=== PATIENT | female | born 1975 | race Hispanic/Latino ===

== ENCOUNTER 2018-05-25 14:02 | Emergency (ER) | payer BC, OTHER ==
[2018-05-25] MEDS ORDERED: ASPIRIN 81 MG CHEWABLE TABLET ONE (15:01)
[2018-05-25 15:20] LABS: Protime INR 1.17
[2018-05-25 15:22] LABS: Absolute Lymphocytes (CBC) 0.8 K/uL (0.7-4.9); Absolute Monocytes 0.3 K/uL (0.1-1.3); Absolute Neutrophil 5.1 K/uL (1.8-8.0); Basophils % 0.3 % (0-1.3); Eosinophils % 0.7 % (0-4.4); Hematocrit 26.2 % (36.0-45.0); Lymphocytes % 12.6 % (15.3-44.8); MCH 19.9 pg (27.0-35.0); MCV 66.5 fL (80-100); Monocytes % 4.4 % (3.3-12.3); RBC Red Blood Cell Count 3.94 M/uL (3.86-4.86)
--- NOTE | 2018-05-25 15:22 | RAD REPORT ---
EXAM DESCRIPTION: RAD - Chest Pa And Lat (2 Views) - 05/25/2018 3:16 pm CLINICAL HISTORY: Chest pain, right arm numbness and tingling COMPARISON: August 2012 TECHNIQUE: PA and lateral views of the chest were obtained. FINDINGS: The lungs are clear. No new mediastinal or hilar process suspected. Slight fullness at th e right hilum and suprahilar region is not clearly different from the comparison. Slight elevation of the right hemidiaphragm noted and stable. Heart size is normal and central vasculature is within nor mal limits. No pleural effusion or pneumothorax seen. No acute bony finding noted. No aortic abnor mality. IMPRESSION: No acute cardiopulmonary process. Above detailed chest findings are not clearly differe nt from comparison.
[2018-05-25 15:40] LABS: ALT/SGPT 157 U/L (12-78); AST/SGOT 175 U/L (15-37); Albumin 3.7 g/dL (3.4-5.0); Alkaline Phosphatase 112 U/L (45-117); BUN Blood Urea Nitrogen 13 mg/dL (7-18); Bicarbonate 31 mmol/L (21-32); Bilirubin Direct 0.2 mg/dL (0-0.2); Bilirubin Total 0.7 mg/dL (0.2-1.0); Glucose Level 154 mg/dL (74-106); NT PRO-BNP 45 pg/mL (<125); Potassium 3.8 mmol/L (3.5-5.1); Protein, Total 7.9 g/dL (6.4-8.2); Sodium Level 134 mmol/L (136-145)
[2018-05-25 15:50] LABS: Blood Morphology Comment NOTED (NOT SEEN); Hypochromasia 2+; Platelet Estimate ADEQ; Urine White Blood Cell Casts OK
[2018-05-25 16:22] LABS: Urine Blood NEGATIVE (NEG); Urine Glucose NEGATIVE (NEG); Urine Protein TRACE (NEG); Urine pH 6.5 (5.0-7.0)
--- NOTE | 2018-05-25 16:27 | EKG ---
Test Date: 2018-05-25 Test Time: 14:14:51 Application Packaging Consultant: DRU MEASUREMENT RESULTS: Intervals: Rate: 114 AK: 148 QRSD: 82 QT: 332 QTc: 457 [place]: P: 69 AK: 148 QRS: 19 T: 48 INTERPRETIVE STATEMENTS: Sinus tachycardia Cannot rule out Anterior infarct, age undetermined Abnormal ECG Compared to ECG 08/12/2012 12:52:54 No significant changes Electronically Signed On 05-25-18 16:27:04 CDT by Austin Gregorio
--- NOTE | 2018-05-25 17:23 | EDPHYS ---
Physician Documentation [facility] Name: Silvana Hanna Age: 42 yrs Sex: Female : 1975 Arrival Date: 05/25/2018 Time: 14:05 Bed 26 Private MD: Abby Rhodes H ED Physician Demetrio Chandler HPI: 05/25 17:10 This 42 yrs old Female presents to ER via Ambulatory with complaints of Chest wa Pain, Dizziness. 17:10 The patient or guardian reports chest pain that is located primarily in the substernal wa area. Onset: just prior to arrival. The pain radiates to Associated signs and symptoms: Pertinent positives: shortness of breath, sweating, tingling, Pertinent negatives: near syncope, palpitations. The chest pain is described as sharp. Duration: The patient or guardian reports multiple episodes, the episodes last approximately 5 second(s). Modifying factors: The symptoms are alleviated by nothing. the symptoms are aggravated by nothing. Severity of pain: At its worst the pain was mild in the emergency department the pain has improved. The patient has experienced similar episodes in the past, several times. The patient has not recently seen a physician. sudden onset chest discomfort, diaphoresis and dizziness while having lunch. . 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 - Social history:: Smoking status: Patient/guardian denies using tobacco. - Ebola Screening: : Patient negative for fever greater than or equal to 101.5 degrees Fahrenheit, and additional compatible Ebola Virus Disease symptoms Patient denies exposure to infectious person Patient denies travel to an Ebola-affected area in the 21 days before illness onset No symptoms or risks identified at this time. - Family history:: not pertinent. - Hospitalizations: : No recent hospitalization is reported. ROS: 17:13 Constitutional: Negative for fever, chills, and weight loss, Eyes: Negative for injury, wa pain, redness, and discharge, ENT: Negative for injury, pain, and discharge, Neck: Negative for injury, pain, and swelling, Abdomen/GI: Negative for abdominal pain, nausea, vomiting, diarrhea, and constipation, Back: Negative for injury and pain, : Negative for injury, bleeding, discharge, and swelling, MS/Extremity: Negative for injury and deformity, Skin: Negative for injury, rash, and discoloration, Psych: Negative for depression, anxiety, suicide ideation, homicidal ideation, and hallucinations. 17:13 Cardiovascular: Positive for chest pain, Negative for edema, orthopnea, palpitations, paroxysmal nocturnal dyspnea. 17:13 Respiratory: Positive for shortness of breath, at rest. Negative for cough. 17:13 Neuro: Positive for dizziness, Negative for gait disturbance, headache. Exam: 17:14 Constitutional: This is a well developed, well nourished patient who is awake, alert, wa and in no acute distress. Head/Face: Normocephalic, atraumatic. Eyes: Pupils equal round and reactive to light, extra-ocular motions intact. Lids and lashes normal. Conjunctiva and sclera are non-icteric and not injected. Cornea within normal limits. Periorbital areas with no swelling, redness, or edema. ENT: Nares patent. No nasal discharge, no septal abnormalities noted. Tympanic membranes are normal and external auditory canals are clear. Oropharynx with no redness, swelling, or masses, exudates, or evidence of obstruction, uvula midline. Mucous membranes moist. Neck: Trachea midline, no thyromegaly or masses palpated, and no cervical lymphadenopathy. Supple, full range of motion without nuchal rigidity, or vertebral point tenderness. No Meningismus. Chest/axilla: Normal chest wall appearance and motion. Nontender with no deformity. No lesions are appreciated. Abdomen/GI: Soft, non-tender, with normal bowel sounds. No distension or tympany. No guarding or rebound. No evidence of tenderness throughout. Back: No spinal tenderness. No costovertebral tenderness. Full range of motion. Skin: Warm, dry with normal turgor. Normal color with no rashes, no lesions, and no evidence of cellulitis. MS/ Extremity: Pulses equal, no cyanosis. Neurovascular intact. Full, normal range of motion. Psych: Awake, alert, with orientation to person, place and time. Behavior, mood, and affect are within normal limits. 17:14 Cardiovascular: Rate: tachycardic, Rhythm: regular, Pulses: no pulse deficits are appreciated, Heart sounds: normal, Edema: is not appreciated, JVD: is not appreciated. 17:14 Neuro: Orientation: is normal, Mentation: is normal, Memory: is normal, Cranial nerves: grossly normal, Cerebellar function: is grossly normal. Vital Signs: 14:16 BP 148 / 81; Pulse 118; Resp 19 S; Pulse Ox 98% on R/A; Weight 111.13 kg (R); Pain 4/10;sg 15:46 BP 139 / 68; Pulse 104; Resp 18; Pulse Ox 97% on R/A; tl3 17:09 BP 143 / 62; Pulse 100; Resp 18; Pulse Ox 98% ; tl3 17:35 BP 145 / 62; Pulse 96; Resp 18; Pulse Ox 97% ; tl3 MDM: 14:[address] 17:14 Differential diagnosis: acute myocardial infarction, anxiety, coronary artery disease wa stable angina, unstable angina. 17:15 Data reviewed: vital signs, nurses notes, lab test result(s), EKG, radiologic studies. ct Test interpretation: by ED physician or midlevel provider: labs noted for anemia (microcytic). also elevated liver enzymes. . ED course: needs r/o paroxysmal dysrhythmia. consider primary anxiety. r/o ACS. anemia? thyroid dysfunction? pt with considerable g/o ETOH. 17:17 Test interpretation: by ED physician or midlevel provider: EKG: HR 114. sinus tach. ct 17:18 Test interpretation: by ED physician or midlevel provider: normal CXR. Response to ct treatment: the patient's symptoms have markedly improved after treatment, tachycardia resolved. discussed the need to quit ETOH. will start iron supplement for anemia. f/u with VENDING TECHNICIAN for further eval of h/o menorrhagia. f/u cardiology for holter to r/o paroxysmal dysrrhymia. 05/25 14:52 Order name: Basic Metabolic Panel; Complete Time: 16:36 05/25 14:52 Order name: CBC with Diff; Complete Time: 16:37 05/25 14:52 Order name: LFT's; Complete Time: 16:37 05/25 14:52 Order name: Magnesium; Complete Time: 16:36 05/25 14:52 Order name: NT PRO-BNP; Complete Time: 16:37 05/25 14:52 Order name: PT-INR; Complete Time: 15:35 ct 05/25 14:52 Order name: Troponin (emerg Dept Use Only); Complete Time: 15:35 ct 05/25 14:52 Order name: Chest Pa And Lat (2 Views) XRAY; Complete Time: 15:35 ct 05/25 14:52 Order name: TSH; Complete Time: 16:37 ct 05/25 15:31 Order name: CBC Smear Scan; Complete Time: 16:37 EDMS 05/25 16:09 Order name: Urine Dipstick--Ancillary (enter results); Complete Time: 16:37 mb4 05/25 16:09 Order name: Urine --Ancillary (enter results); Complete Time: 16:36 4 05/25 14:52 Order name: Urine Test (obtain specimen); Complete Time: 15:49 ct 05/25 14:52 Order name: EKG; Complete Time: 14:53 ct 05/25 14:52 Order name: Cardiac monitoring; Complete Time: 15:03 ct 05/25 14:52 Order name: EKG - Nurse/Tech; Complete Time: 14:53 ct 05/25 14:52 Order name: IV Saline Lock; Complete Time: 15:03 ct 05/25 14:52 Order name: Labs collected and sent; Complete Time: 15:03 ct 05/25 14:52 Order name: O2 Per Protocol; Complete Time: 15:03 ct 05/25 14:52 Order name: O2 Sat Monitoring; Complete Time: 15:03 ct 05/25 14:52 Order name: Urine Dipstick-Ancillary (obtain specimen); Complete Time: 15:50 ct Administered Medications: 15:06 Not Given (patient took 2 325 mg aspirin at home at 1pm): Aspirin Chewable Tablet 324 tl3 mg PO once; 81 mg tablets x 4 Disposition: 05/25/18 17:22 Discharged to Home. Impression: Chest pain, unspecified, Microcytic Anemia. - Condition is Stable. - Discharge Instructions: Nonspecific Chest Pain, Iron Deficiency Anemia, Adult, [id number]. - Prescriptions for Ferrous Sulfate 325 mg (65 mg Iron) Oral Tablet - take 1 tablet by ORAL route every 8 hours; 90 tablet. senna 8.6 mg Oral tablet - take 1 tablet by ORAL route once daily As needed; 25 tablet. - Medication Reconciliation Form, Thank You Letter, Antibiotic Education, Prescription Opioid Use form. - Follow up: Austin Gregorio MD; When: 2 - 3 days; Reason: Recheck today's complaints. Follow up: Oksana Manriquez MD; When: 2 - 3 days; Reason: for evaluation of your anemia and heavy menses. - Problem is new. - Symptoms have improved. - Notes: do not drink alcohol as your liver enzymes are elevated signifying potential damage. follow up with the quarry manager for further evaluation and possible holter monitoring to rule out occasional irregular heart beat. understand that alcohol consumption can make these symptoms worse. Take iron pills to help boost your blood and improve your anemia. you may take stool softner as needed while on iron. see the VENDING TECHNICIAN doctor about heavy menstrual bleeding. return to ER immediately for severely worrisome concerns Signatures: Dispatcher [employer] EDMS Ace Mcgregor RN RN sg Demetrio Chandler MD MD wa Alisa Abarca RN RN tl3 Navarro Elise RN RN mg2 Corrections: (The following items were deleted from the chart) 17:36 17:22 05/25/2018 17:22 Discharged to Home. Impression: Chest pain, unspecified; tl3 Microcytic Anemia. Condition is Stable. Forms are Medication Reconciliation Form, Thank You Letter, Antibiotic Education, Prescription Opioid Use. Follow up: Austin Gregorio; When: 2 - 3 days; Reason: Recheck today's complaints. Follow up: Oksana Manriquez; When: 2 - 3 days; Reason: for evaluation of your anemia and heavy menses. Problem is new. Symptoms have improved. jass
--- NOTE | 2018-05-25 17:23 | ER ---
Nurse's Notes [facility] Name: Silvana Hanna Age: 42 yrs Sex: Female : 1975 Arrival Date: 05/25/2018 Time: 14:05 Bed 26 Private MD: Abby Rhodes H Diagnosis: Chest pain, unspecified;Microcytic Anemia Presentation: 05/25 14:14 Presenting complaint: Patient states: At like 1230 today, I was driving to get a [employer] and I got very dizzy, I had to rod puller and coiler, then my right arm was numb and tingling, I just didn't feel normal. My chest started hurting and I made it to work and decided that since the Chest pain is still happening I need to get checked out. Transition of care: patient was not received from another setting of care. Onset of symptoms was May 25, 2018. Risk Assessment: Do you want to hurt yourself or someone else? Patient reports no desire to harm self or others. Initial Sepsis Screen: Does the patient meet any 2 criteria? No. Patient's initial sepsis screen is negative. Does the patient have a suspected source of infection? No. Patient's initial sepsis screen is negative. Care prior to arrival: None. 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 - Social history:: Smoking status: Patient/guardian denies using tobacco. - Ebola Screening: : Patient negative for fever greater than or equal to 101.5 degrees Fahrenheit, and additional compatible Ebola Virus Disease symptoms Patient denies exposure to infectious person Patient denies travel to an Ebola-affected area in the 21 days before illness onset No symptoms or risks identified at this time. - Family history:: not pertinent. - Hospitalizations: : No recent hospitalization is reported. Screenin:30 Abuse screen: Denies threats or abuse. Nutritional screening: No deficits noted. tl3 Tuberculosis screening: No symptoms or risk factors identified. Fall Risk None identified. Assessment: 14:30 General: Appears distressed, uncomfortable, well groomed, well developed, well tl3 nourished, Behavior is calm, cooperative, appropriate for age. Pain: Denies pain. Pain began. Neuro: Level of Consciousness is awake, alert, obeys commands, Oriented to person, place, time, situation, Appropriate for age. Cardiovascular: Heart tones S1 S2 present Patient's skin is warm and dry. Rhythm is regular. Respiratory: Airway is patent Respiratory effort is even, unlabored, Respiratory pattern is regular, symmetrical. GI: No signs and/or symptoms were reported involving the gastrointestinal system. : No signs and/or symptoms were reported regarding the genitourinary system. EENT: No signs and/or symptoms were reported regarding the EENT system. Derm: No signs and/or symptoms reported regarding the dermatologic system. 15:46 Reassessment: Patient appears in no apparent distress at this time. No changes from tl3 previously documented assessment. Patient and/or family updated on plan of care and expected duration. Pain level reassessed. Patient is alert, oriented x 3, equal unlabored respirations, skin warm/dry/pink. pt returned from X ray. 16:18 Reassessment: Patient appears in no apparent distress at this time. No changes from tl3 previously documented assessment. Patient and/or family updated on plan of care and expected duration. Pain level reassessed. Patient is alert, oriented x 3, equal unlabored respirations, skin warm/dry/pink. pt provided scant amount of urine, water provided to patient so she can provide more Patient denies pain at this time. 17:09 Reassessment: Patient appears in no apparent distress at this time. No changes from tl3 previously documented assessment. Patient and/or family updated on plan of care and expected duration. Pain level reassessed. Patient is alert, oriented x 3, equal unlabored respirations, skin warm/dry/pink. Dr Chandler at bedside discussing POC with pt. 17:35 Pain: Pain does not radiate. tl3 Vital Signs: 14:16 BP 148 / 81; Pulse 118; Resp 19 S; Pulse Ox 98% on R/A; Weight 111.13 kg (R); Pain 4/10;sg 15:46 BP 139 / 68; Pulse 104; Resp 18; Pulse Ox 97% on R/A; tl3 17:09 BP 143 / 62; Pulse 100; Resp 18; Pulse Ox 98% ; tl3 17:35 BP 145 / 62; Pulse 96; Resp 18; Pulse Ox 97% ; tl3 ED Course: 14:05 Patient arrived in ED. mr 14:06 Rhodes VivJoseTalat, DO is Private Physician. mr 14:12 Demetrio Chandler MD is Attending Physician. wa 14:15 Triage completed. 14:15 Arm band placed on. sg 14:19 EKG done, by recreation technician. reviewed by Demetrio Chandler MD. 3 14:30 Patient has correct armband on for positive identification. Placed in gown. Bed in low tl3 position. Call light in reach. Side rails up X 1. Pulse ox on. NIBP on. Warm blanket given. 14:30 No provider procedures requiring assistance completed. Initial lab(s) drawn, by ct, tl3 sent to lab. Inserted saline lock: 20 gauge in right forearm, using aseptic technique. Blood collected. Patient maintains SpO2 saturation greater than 95% on room air. 14:52 Alisa Abarca, RAVI is Primary Nurse. tl3 15:14 Patient moved to radiology via wheelchair. [facility] 15:14 X-ray completed. Patient tolerated procedure well. [facility] 15:15 Chest Pa And Lat (2 Views) XRAY In Process Unspecified. EDDC 17:09 IV discontinued, intact, bleeding controlled, No redness/swelling at site. Pressure tl3 dressing applied. 17:20 Austin Gregorio MD is Referral Physician. ia 17:21 Oksana Manriquez MD is Referral Physician. wa Administered Medications: 15:06 Not Given (patient took 2 325 mg aspirin at home at 1pm): Aspirin Chewable Tablet 324 tl3 mg PO once; 81 mg tablets x 4 Outcome: 17:09 Discharged to home tl3 17:22 Discharge ordered by . wa 17:34 Condition: stable tl3 17:34 Discharge instructions given to patient, Instructed on discharge instructions, follow up and referral plans. medication usage, Demonstrated understanding of instructions, follow-up care, medications, Prescriptions given X 2. 17:36 Patient left the ED. tl3 Signatures: Dispatcher [employer] EDMS Ace Mcgregor RN RN Parul Simon BoomXena mh1 Demetrio Chandler MD MD wa Lowrey, Tammy, RN RN tl3 Navarro Elise RN RN mg2 Kelly Vick 3 Corrections: (The following items were deleted from the chart) 15:05 15:03 Aspirin Chewable Tablet 324 mg PO mg2 tl3
[2018-05-25 17:58] VITALS: BP 145/62; O2SAT 97
== END 2018-05-25 17:36 | disposition home or self-care (01) ==
LOC: ER 14:02
DX: D50.9 Iron deficiency anemia, unspecified (principal); F41.9 Anxiety disorder, unspecified
CPT/HCPCS: 36415; 71046; 80048; 80076; 81003; 81025; 83735; 83880; 84443; 84484; 85025; 85610; 93005; 99284

== ENCOUNTER 2019-02-27 06:21 | Day surgery (SDC) | payer BC ==
[2019-02-27] MEDS ORDERED: Ringers Lactate 1,000 ML IV ONE (07:05)
[2019-02-27] MEDS ORDERED: FENTANYL CITR 100 MCG/2 ML ONE (07:06)
[2019-02-27] MEDS ORDERED: PROPOFOL 200 MG/20 ML VIAL IV ONE ×2 (07:06→08:00)
[2019-02-27] MEDS ORDERED: ONDANSETRON 4 MG/2 ML VIAL ONE (07:07)
[2019-02-27] MEDS ORDERED: LIDOCAINE 1% MPF 2 ML AMPULE ONE (07:07)
[2019-02-27] MEDS ORDERED: MIDAZOLAM HCL 2 MG/2 ML INJ ONE (07:08)
[2019-02-27] MEDS ORDERED: LIDOCAINE 1% W/EPI 1:100,000 MDV 50 ML VIAL ONE (07:35)
[2019-02-27] MEDS ORDERED: NA CHLORIDE 0.9% 1,000 ML ONE ×3 (07:41→08:29)
[2019-02-27] MEDS ORDERED: KETOROLAC 30 MG/ML INJ ONE (08:35)
[2019-02-27 09:37] VITALS: BP 113/61; TEMP 97.9; O2SAT 93
--- NOTE | 2019-02-27 13:51 | OP ---
Date of Procedure: 02/27/2019 Surgeon: Oksana Manriquez MD Preoperative Diagnosis: Menorrhagia (abnormal uterine bleeding due to ovulatory dysfunction). Postoperative Diagnoses: Menorrhagia (abnormal uterine bleeding due to ovulatory dysfunction) and en dometrial polyp. Procedures Performed: Hysteroscopy, dilation and curettage. Anesthesia: General with endotracheal intubation. Specimens: Endometrial curettings and polyp. Estimated Blood Loss: Minimal. Complications: None. Drains: None. Finding: Endometrial polyp on the right lateral wall close to the cornual end, thickened endometrium and the posterior wall and left lateral aspect as well. The entire cavity was well visualized. The polyp was removed with the help of scissors, cutting the base of the polyp and retrieval with the fo rceps. The patient is a 43-year-old with heavy menstrual bleeding. Transvaginal ultrasound showed thickened endometrium. She is a morbidly obese patient, 0, sampling an 11 cm fibroid. There is also a complex ovarian cyst 10.6 cm for this patient, so consented her for sampling procedure at the [facility]. Procedure In Detail: After taking her back to the OR, she was given general anesthesia. Then, she w as placed in the dorsal lithotomy position using Don stirrups. Pelvic exam was performed. Uterus enlarged. I was not able to clearly palpate the pelvic mass, but the entire uterine ovarian cyst mas s complex was easily palpable through the abdomen about 14-16 week size on exam. Speculum was placed to expose the cervix, prep with Betadine x3. Anterior lip grasped with 2 Allis c lamps. Diagnostic SlimLine hysteroscope placed with a 30-degree lens and normal saline for distentio n. The cervical canal was traversed under direct vision. Uterine cavity was entered. Polyp visuali zed as discussed above. The diagnostic scope was removed, operative scope was placed, and the base o f the polyp was cut, then retrieval with a Quang forceps, re-visualize the uterine cavity for compl ete removal. Once confirmed, then the scope was removed endometrial curettings were performed with # 2 curette. Adequate sampling performed. All the instruments removed. Instrument, needle, and spong e counts were done and were correct at the case. Specimen was handed off for permanent pathology. T he patient was recovered in the operating room from her anesthesia and taken to PACU in stable condit ion. She will follow up with me in 1 week for results and then we will discuss the plan about her pr ocedure, definitely a complex ovarian cyst, so she will need surgical removal of this, and possibly h ysterectomy for removal of the fibroid in the uterus as well. If the pathology is benign, we can dis cuss the options of either staying here locally or just going to [place] to a certified orthotic fitter oncologist, but if the pathology is abnormal with atypia or malignancy in the uterus, then she definitely is a referral to a gynecological oncologist. ABBY Voice ID: [id number] Report ID: [id number]
== END 2019-02-27 09:45 | disposition home or self-care (01) ==
LOC: OR 06:21
PROVIDERS: ATTEND Obstetrics & Gynecology
PROC: 0UJD8ZZ Inspection of Uterus and Cervix, Via Natural or Artificial Opening Endoscopic (ICD-10-PCS; 2019-02-27)
PROC: 0UDB7ZX Extraction of Endometrium, Via Natural or Artificial Opening, Diagnostic (ICD-10-PCS; principal; 2019-02-27 07:30)
DX: N92.1 Excessive and frequent menstruation with irregular cycle (principal); N84.0 Polyp of corpus uteri; N83.202 Unspecified ovarian cyst, left side; D50.0 Iron deficiency anemia secondary to blood loss (chronic); I10 Essential (primary) hypertension; F41.9 Anxiety disorder, unspecified; E66.01 Morbid (severe) obesity due to excess calories; Z68.42 Body mass index [BMI] 45.0-49.9, adult; Z90.49 Acquired absence of other specified parts of digestive tract; Z80.3 Family history of malignant neoplasm of breast; Z83.3 Family history of diabetes mellitus; Z82.49 Family history of ischemic heart disease and other diseases of the circulatory system
CPT/HCPCS: 81025; 88305; J2001; J2250; J2405; J2704; J3010; J7030

== ENCOUNTER 2022-10-25 14:53 | Emergency (ER) | payer OTHER ==
--- OUTSIDE RECORDS SUMMARY | 2022-10-25 14:56 | XMS REPORT | Continuity of Care Document ---
:1975 Author Organization [facility] t Address [address] [place] [address] Care Team Providers Name Role Phone [phone] Primary Care Physician Unavailable TRENT ROGER Attending Clinician Unavailable HANNA GALAVIZ Attending Clinician Unavailable Trent Roger MD Attending Clinician White ALUMINUM FABRICATION SUPERVISOR, Autumn Castano Attending Clinician Shirlene Attending Clinician Unavailable Mary West Attending Clinician UNKNOWN, ATTENDING Attending Clinician Unavailable MEGAN WALKER Attending Clinician Unavailable [place] RODRIGUES, Hanna Hopkins Attending Clinician Therapy, [facility] Attending Clinician Unavailable Jose Juan Chauhan MD Attending Clinician JOSE JUAN CHAUHAN Attending Clinician Unavailable Doctor Unassigned, [place] Attending Clinician Unavailable Lab, [facility] Fam Pob I Attending Clinician Unavailable Florence Fry Attending Clinician Megan Bradshaw Attending Clinician Hanna Galaviz MD Attending Clinician Shirlene Admitting Clinician Unavailable Payers Payer Name Policy Type Policy Number Effective Date Expiration Date S ource [place] [id number] 2017 2017 00:00:00 00:00:00 CIGNA II [id number] 2021 00:00:00 CIGNA HMO POS OPEN [id number] 2020 ACCESS 00:00:00 [employer] HEALTHCARE [id number] 2021 (PPO) 00:00:00 Problems Condition Condition Condition Status Onset Resolution Last Treating Co mments Source Name Details Category Date Date Treatment Clinician Date Abdominal Abdominal Disease Active Uni vers hernia hernia 06-03 ity of 00:00: 00 MD Savita bowen [facility] Body mass Body mass Disease Active Uni vers index 40+ index 40+ 8- ity of - severely [place] obese obese 00 MD Savita bowen [facility] Essential Essential Disease Active Uni vers hypertensi hypertensi 05-31 it y of on on 00:00: MD Savita bowen [facility] Endometria Endometria Disease Active U nivers l l 05-31 [place] of intraepith intraepith [place] el[place]ial 00 neoplasia neoplasia Mario rso (EIN) (EIN) n [facility] Herpes Herpes Disease Active Univers simplex simplex 05-31 ity of 00:00: 00 MD Savita bowen [facility] Acute Acute Disease Active Univers vaginitis vaginitis 05-31 ity of 00:00: 00 MD Savita bowen [facility] Center Malignant Malignant Disease Active Uni vers neoplasm neoplasm 06-08 ity of of of 00:00: [place] endometriu endometriu 00 MD pooja bowen [facility] Center History of History of Disease Active U nivers malignant malignant 06-08 ity of neoplasm neoplasm 00:00: [place] of of 00 endometriu endometriu Gia bowen [facility] Center Other Other Disease Active Overview: Univer s specified specified 05-03 Formattin i ty of preoperati preoperati 00:00: g of this [place] ve ve 00 note examinatio examinatio might be Savita bowen different n from the Cancer original. Center I have discussed the patient's medical issues with Dr Meneses, the Consultat anupam Medicine Physician , in the [facility] Center on 05/03/2019 at 4:46 PM. Discussed elev enzymes, normal bilirubin . Pt sent to the lab for PT/PTT. Also discussed pt's c/o occ CP episodes over the last 4 yrs for which she has gone to the twice to the ER before and told it was non-cardi ac. Pt reports seeing her cardiolog ist Dr Gregorio in [place] 01/2019 as she needed clearance for D&C. She occasiona lly has palpitati ons on exertion and CP. These episodes happen during her menstruat ion cycle. She does have menorrhag ia and is anemic. She states her cardiolog ist thought symptoms were r/t anemia. Pt states she was cleared to proceed with D&C. Pt states she was told that if the symptoms did not improved after the hysterect wilda, then she would need further work-up. Pt reports a stress test was recommend ed for after her D&C along with a sleep study, but she never returned. States she also had an Echo 01/2019 with no significa nt findings. Outside report requested . Since then, she reports her CP has definitel y improved and does not occur as often. She last had an episode 2 days ago while on her menstrual cycle again after walking through an apt complex climbing stairs to show propertie s. It lasted only a few mins and resolved with rest. Was not as intense as episodes in the past. Discussed with Dr Meneses who notes this to be chronic stable angina that does not need further work-up prior to her surgery tomorrow. Of note her EKG today 05/03/19 is SR, rate 88, low voltage in precordia l leads. We did recommend pt return for f/u to her cardiolog ist after surgery.B ased on our discussio n, we feel that the patient is optimized for the planned procedure as scheduled . Please contact the Consultat anupam Medicine Inpatient Consultan t Physician for any issues concernin g post operative medical managemen t. Please f/u on PT/PTT results.0 03/22/2019 : MRI PELVIS: IMPRESSIO N:1. Large bulky uterus. Large subserosa l uterine fundal mass likely represent s uterine fibroid.2 . Large 13 cm left adnexal lesion with multiple septation s. Different ials include cystadeno ma but borderlin e low-grade ovarian neoplasm cannot be excluded Elevated Elevated Disease Active Overview: Un kelly liver liver 05-03 Formattin ity of enzymes enzymes 00:00: g of this [place] level level 00 note might be Anderso different n from the Cancer original. Center AST 114, ALT 107 from 05/03/19Lab s from 03/26/19 also indicated similar elevation Abdominal Abdominal Disease Active Uni vers or pelvic or pelvic 03-29 ity of swelling, swelling, 00:00[place] mass, or mass, or 00 lump, left lump, left An derso lower lower n quadrant quadrant Cancer Center Subserous Subserous Disease Active Uni vers leiomyoma leiomyoma 03-29 ity of of uterus of uterus 00:00[place] 00 MD [facility]ita [facility] Pelvic Pelvic Disease Active Overview: Univer s pain pain 03-29 Formattin ity of 00:00: g of this [place] 00 note might be Anderso different n from the Cancer original. 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 An derso a a n [facility] Center Allergies, Adverse Reactions, Alerts Allergy Allergy Status Severity Reaction(s) Onset Inactive Treating Comm ents Source Name Type Date Date Clinician NO KNOWN Drug Active Univers ALLERGIE Class ity of [facility] [place] [facility] Family History Family Member Diagnosis Comments Start Date Stop Date Source Maternal cousin Breast cancer Univer sity of [facility] Maternal grandfather Mesothelioma Un iversity of [facility] [place] Maternal grandmother Lung cancer Uni versity of [facility] Paternal grandfather Stomach cancer [facility] [place] [facility] Paternal uncle Drug abuse [facility] [place] [facility] Social History Social Habit Start Date Stop Date Quantity Comments Source Alcohol intake 2022-05-31 2022-05-31 Current drinker Unive rsity of 00:00:00 00:00:00 of alcohol Kiley liang (finding) [facility] Center Cigarettes smoked 2019-03-19 2019-03-19 Univers ity of current (pack per 00:00:00 00:00:00 [place] Pooja Castano ) - Reported Cancer Ce nter Cigarette 2019-03-19 2019-03-19 University of pack-years 00:00:00 00:00:00 Kiley liang [facility] Tobacco use and 2019-03-19 2019-03-19 Smokeless Universit y of exposure 00:00:00 00:00:00 tobacco non-user [facility] Tobacco Comment 2019-03-19 2019-03-19 Started smoking Univ ersity of 00:00:00 00:00:00 at the age of [place] MD Gia carbajal 15, stopped Cancer Center smoking at 22 Alcohol Comment 2019-03-19 2019-03-19 I have 3-4 Universit y of 00:00:00 00:00:00 drinks liquor Kiley carbajal nightly. Cancer Center History of tobacco 1989-05-03 1997-10-03 Current smoker Un iversity of use 00:00:00 00:00:00 [place] MD Anders liang [facility] Sex Ass[birth year] At [birth year] Universit y of 00:00:00 00:00:00 [facility] Smoking Status Start Date Stop Date Source Unknown if [facility] [place] [facility] Ex-smoker 2019-03-19 00:00:00 2019-03-19 00:00:00 Universi ty [facility] Medications Ordered Filled Start Stop Current Ordering Indication Dosage Frequency Signature Comments Components Source Medication Medication Date Date Medication? Clinician (SIG) Name Name metoprolol Yes 25mg Take 25 mg U nivers succinate 8- by mouth ity of (TOPROL XL) 11:13: [place]. [place] 25 mg 24 hr 44 tablet Savita bowen [facility] montelukast Yes 10mg Take 10 mg Univers (SINGULAIR) 05-31 by mouth ity of 10 mg 11:13: daily. [place] tablet 44 MD Savita bowen [facility] VITAMIN B 2021- No Take by Univ ers COMPLEX 05-31- mouth ity of ORAL 11:13: 00:00 daily. [place] 16 :00 MD Savita bowen [facility] ranitidine 2021- No 75mg Take 75 mg Univers (ZANTAC) 75 05-31 by mouth ity of mg tablet 11:13: 00:00 twice [place] 12 :00 daily. MD Savita bowen [facility] multivitami 2021- No 1{tbl} Take 1 U nivers n 05-31 tablet by ity of (multivitam 11:13: 00:00 mouth [place] in) tablet 03 :00 daily. MD Savita bowen [facility] aspirin 81 2021- No 324mg Take 324 U nivers mg EC 05-31 mg by ity of tablet 11:12: 00:00 mouth once [place] 57 :00 a week. MD Savita bowen [facility] casirivimab 2020- No [id number] 1200mg 1,200 mg, Univers -imdevimab 06-13 IV ity of 1200 mg in 15:30: 14:44 Infusion, [place] 60 mL NS 00 :00 ONCE, Medical MINI-BAG Administer Branc h over 20 Minutes, 06/13/21 at 1030, For 1 dose
Ad beverage steward as an IV infusion via pump or gravity through an intravenou s line containing a sterile, in-line or add-on 0.2-micron polyethers ulfone (PES) filter.&nb sp;Stable 36 hours refrigerat ed; 4 hours at room temperatur e. &nbs p;
casirivimab No [id number] 1200mg 1,200 mg, Univers -imdevimab 06-13 IV ity of 1200 mg in 15:30: 14:44 Infusion, [place] 60 mL NS 00 :00 ONCE, Medical MINI-BAG Administer Branc h over 20 Minutes, 06/13/21 at 1030, For 1 dose
Ad beverage steward as an IV infusion via pump or gravity through an intravenou s line containing a sterile, in-line or add-on 0.2-micron polyethers ulfone (PES) filter.&nb sp;Stable 36 hours refrigerat ed; 4 hours at room temperatur e. &nbs p;
cetirizine 2019-0 Yes Complex 10mg Take 1 Un kelly (ZyrTEC) 10 8-04 atypical tablet (10 ity of mg tablet 00:00: endometrial mg) by Kiley 00 hyperplasia mouth at MD bedtime. Savita bowen [facility] Vital Signs Vital Name Observation Time Observation Value Comments Source Systolic blood 2021-06-13 15:48:00 151 mm[Hg] Univer sity of pressure [facility] Diastolic blood 2021-06-13 15:48:00 84 mm[Hg] Unive rsity of pressure [facility] Heart rate 2021-06-13 15:48:00 100 /min General acute hospital Body temperature 2021-06-13 15:48:00 36.33 Amanda Univ ersity [facility] Respiratory rate 2021-06-13 15:48:00 20 /min [facility] Oxygen saturation in 2021-06-13 15:48:00 94 /min University of Arterial blood by Kiley gurrola Pulse oximetry [place] Body height 2021-06-13 14:05:00 160 cm General acute hospital Body weight 2021-06-13 14:05:00 117.935 kg General acute hospital BMI 2021-06-13 14:05:00 46.06 kg/m2 General acute hospital Systolic blood 2022-05-31 15:55:12 165 mm[Hg] Univer sity of pressure Kiley Lawrence on [facility] Diastolic blood 2022-05-31 15:55:12 86 mm[Hg] Unive rsity of pressure Kiley Lawrence on [facility] Heart rate 2022-05-31 15:55:12 102 /min Universi ty [facility] MD Lawrence on [facility] Body temperature 2022-05-31 15:55:12 36.61 Amanda Univ ersity Jessica Lawrence on [facility] Center Respiratory rate 2022-05-31 15:55:12 18 /min Univ ersity Jessica Lawrence on [facility] Oxygen saturation in 2022-05-31 15:55:12 96 /min University of Arterial blood by Kiley wright Pulse oximetry [facility] Body weight 2022-05-31 15:52:00 115.5 kg Universi ty [facility] MD Lawrence on [facility] BMI 2022-05-31 15:52:00 45.69 kg/m2 Universi ty Kiley [facility] on [facility] Procedures Procedure Date / Time Performing Clinician Source Performed IMMTRAC2 CONSENT 2021-06-13 05:01:00 Doctor Unassigned, No Unive [facility] AUTHORIZATION FOR 2019-11-15 06:01:00 Doctor Unassigned, No Univ [facility] RELEASE OF [facility] BI SCREENING MAMMOGRAM 2019-06-01 18:16:44 Hanna Galaviz [facility] Plan of Care Planned Activity Planned Date Details Comments Source Future Scheduled 2022-08-11 COVID-19 Vaccination Uni [facility] Test 13:41:17 (#1) [code = COVID-19 And nikita Cancer Vaccination (#1)] Center Encounters Start End Encounter Admission Attending Care Care Encounter Source Date/Time Date/Time Type Type Clinicians Facility Department ID 2020-04-07 Outpatient AIDAN ROGER MDA [id number] 11:38:50 TRENT bowen 2022-09-07 2022-09-07 Outpatient Sheyla GALAVIZ [facility] [id number] Univers 00:00:00 00:00:00 HANNA guevara [facility] 2022-09-02 2022-09-02 Outpatient Sheyla GALAVIZ [facility] [id number] Univers 00:00:00 00:00:00 HANNA guevara [facility] 2022-05-31 2022-05-31 Outpatient JOLIE ROGER MDA MDA [id number] 10:51:38 11:42:58 TRENT bowen 2022-05-31 2022-05-31 Office Slime 1.2.840.1 [id number] [facility] [place] [facility] 10:30:00 11:42:58 Visit Trent 65675.1.1 ity 3.412.2.7 [place] .3.593803 .8 Savita bowen [facility] 2022-05-31 2022-05-31 Travel 1.2.840.1 [id number] [id number] Univers 00:00:00 00:00:00 72543.1.1 350.1.13.41 ity of 3.412.2.7 2.2.7.3.698 [place] .3.085121 084.8 .8 [facility] 2022-05-10 2022-05-10 Orders White, 1.2.840.1 [id number] Univers 00:00:00 00:00:00 Only Autumn D 49430.1.1 ity of 3.412.2.7 [place] .3.663368 .8 [facility] 2022-04-20 2022-04-20 Outpatient FOG_Burke_R AOSM AOSM [id number] Lucia 01:01:00 01:01:00 Daniel [id number] Ortho pe dic Sports Medicin e 2022-01-19 2022-01-19 Telephone Mary Truong 1.2.840.1 [id number] Univers 00:00:00 00:00:00 39160.1.1 ity of 3.412.2.7 Kiley .3.718355 .8 [facility] 2021-12-01 2021-12-01 Outpatient R UNKNOWN [facility] [id number] Univers 18:20:00 18:20:00 ATTENDING [facility] 2021-11-18 2021-11-18 Outpatient R DENISE [facility] [id number] Univers 10:00:00 10:00:00 MEGAN [facility] 2021-11-13 2021-11-13 Outpatient R DENISE [facility] [id number] Univers 10:00:00 10:00:00 MEGAN [facility] 2021-11-04 2021-11-04 Outpatient R DENISE [facility] [id number] Univers 08:00:00 08:00:00 MEGAN reese [facility] 2021-11-04 2021-11-04 Outpatient R DENISE [facility] [id number] Univers 08:00:00 08:00:00 MEAGN [facility] 2021-10-30 2021-10-30 Telephone [place], 1.2.840.1 [id number] Univers 00:00:00 00:00:00 Hanna L 80285.1.1 it y of 3.412.2.7 [place] .3.613901 .8 [facility] Cancer Center 2021-06-13 2021-06-13 Nurse Therapy, [facility] Covid Infusion [facility] 1.2.840.114 [id number] Univers 08:14:43 09:14:43 Visit Jose Juan Chauhan 350.1.13.10 ity of [place] 4[place]2.7.2.686 [place] [facility] [id number] [address] 2021-06-13 2021-06-13 Outpatient R SAUNDRA [facility] [id number] Univers 09:00:00 09:00:00 JOSE JUAN ity [facility] 2021-06-13 2021-06-13 Orders Doctor VALENTE 1.2.840.114 [id number] Univers 00:00:00 00:00:00 Only Unassigned, DAVE 350.1.13.[address] [place] [facility] 4.2.7.2.686 Kana as [id number] [address] 2021-01-14 2021-01-14 Outpatient PRIV PRIV [id number] [facility] 08:30:00 08:30:00 [id number] Medica l 2021-01-04 2021-01-04 Laboratory Lab, [facility] Fam Pob I [facility] 1.2. 840.114 [id number] Univers 12:26:43 12:46:43 Only [place], [place] [facility] 350.1.13.10 ity of [facility] 4.2.7.2.686 Kana as Professio [id number] [address] Office [address] 2021-01-04 2021-01-04 Outpatient R [facility] [id number] Univers 12:40:00 12:40:00 ity of [facility] 2020-10-13 2020-10-13 Outpatient JOLIE ROGER MDA [facility] [id number] MD 00:00:00 00:00:00 TRENT bowen 2020-08-07 2020-08-07 Laboratory Lab, Adc Fam Pob I [facility] 1.2. 840.114 [id number] Univers 16:10:15 16:30:15 Only Megan Walker [facility] 350.1.13.10 ity of [facility] 4.2.7.2.686 Kana as [facility] [id number] Fl dical nal [address] 2020-08-07 2020-08-07 Outpatient R DENISE [facility] [id number] Univers 16:00:00 16:00:00 MEGAN ity of [facility] 2020-04-11 2020-04-11 Outpatient JOLIE ROGER MDA [facility] [id number] [place] 10:25:06 10:25:06 TRENT bowen 2019-11-15 2019-11-15 Orders Doctor VALENTE 1.2.840.114 [id number] Univers 00:00:00 00:00:00 Only Unassigned, DAVE 350.1.13.[address] [place] [facility] 4.2.7.2.686 Kana as [id number] [facility] [address] 2019-06-01 2019-06-01 [facility] 1.2.840.114 [id number] Univers 12:40:28 23:59:00 Encounter Hanna Daniels 350.1.13.10 ity of [place] 4.2.7.2.686 [facility] [id number] [facility] [address] Branch Results Test Description Test Time Test Comments Results Result Sour e Comments BI SCREENING 2019-05-05 Examination:BI Universi ty of MAMMOGRAM 0 SCREENING MAMMOGRAM [facility] BILATERAL 21:04:35 BILATERAL Branch History:Patient is 43 year old and is seen for:?Screening breast examination. No relevant hormone history has been documented for this patient. Surgical history includes hysterectomy. No relevant medical history has been documented for this patient. Computer-aided detection (CAD) utilized. Comparisons : None available Findings:The breasts have scattered areas of fibroglandular density. There is no evidence of suspicious masses, calcifications, or other abnormal findings. Impression:No mammographic evidence of malignancy. Recommendation:Elana conte mammographic follow-up BI-RADS Category: Both 1 - Negative
--- OUTSIDE RECORDS SUMMARY | 2022-10-25 14:56 | XMS REPORT | Clinical Summary ---
:1975 Author Organization [facility] MD [facility] Center Address [address] [place] [address] Care Team Providers Name Role Phone Oksana Manriquez MD Unavailable Bharat Palencia MD Primary Care Provider Allergies No known active allergies Medications Medication Sig Dispensed Refills Start Date End Date Status cetirizine Take 1 0 05/06/2019 Active (ZyrTEC) 10 mg tablet (10 tabletIndications: mg) by mouth Complex atypical at bedtime. endometrial hyperplasia metoprolol Take 25 mg 0 Active succinate (TOPROL by mouth XL) 25 mg 24 hr daily. tablet montelukast Take 10 mg 0 Active (SINGULAIR) 10 mg by mouth tablet daily. multivitamin Take 1 0 Discont inued (Not (multivitamin) tablet by 2 Appli cable) tablet mouth daily. VITAMIN B COMPLEX Take by 0 Di scontinued (Not ORAL mouth daily. 2 Applica ble) ranitidine Take 75 mg 0 Disconti nued (Not (ZANTAC) 75 mg by mouth 2 Appli cable) tablet twice daily. aspirin 81 mg EC Take 324 mg 0 D iscontinued (Not tablet by mouth 2 Applicable ) once a week. 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 on 05/03/2019 at 4:46 PM. Discussed elev enzymes, normal bilirubin. Pt sent to the lab fo r PT/PTT. Also discussed pt's c/o occ CP episodes over the last 4 yrs for which she has gone to the twice to the ER before and told it was non-cardiac. Pt reports seeing her double cut sawyer Dr Gregorio in [facility] 01/2019 as she needed clearan ce for D&C. She occasionally has palpitations on exertion and CP. These episodes happen during her menstruation cycle. She does have menorrhagia and is anemic . She states her double cut sawyer thought sy mptoms were r/t anemia. Pt states she was cleared to proceed with D&C. Pt states she was told that if the symptoms did not improved after the hysterectomy, th en she would need further work-up. Pt re ports a stress test was recommended for after her D&C along with a sleep study, but she never returned. States she also had an Echo 01/2019 with no significant findings. Outside report requested. Sin ce then, she reports her CP has definitely improved and does not occur as often. She last had an episode 2 days ago while on her menstrual cycle again after walki ng through an apt complex climbing stair s to show properties. It lasted only a few mins and resolved with rest. Was not as intense as episodes in the past. Discussed with Dr Meneses who notes this to be chr onic stable angina that does not need fu rther work-up prior to her surgery tomorrow. Of note her EKG today 05/03/19 is SR, rate 88, low voltage in precordial leads. We did recommend pt return for f/u to her double cut sawyer after surgery. Based on our discussion, we feel that th e patient is optimized for the planned procedure as scheduled. Please contact the Consultative Medicine Inpatient Coil Connector Physician for any issues concerning p ost operative medical management. Please f/u on PT/PTT results. 03/22/2019: MRI PELVIS: IMPRESSION: 1. Large bulky uterus. Large subserosal uterine fundal mass likely represents uterine fibroid. 2. Large 13 cm left adnexal lesion with multiple septations. Differentials include cystadenoma but borderline low-grade ovarian neoplasm cannot be excluded Elevated liver enzymes level 05/03/2019 Overview: AST 114, ALT 107 from 05/03/19 Labs from 03/26/19 also indicated similar elevation Abdominal or pelvic swelling, mass, or lump, left lowe r quadrant 03/29/2019 Subserous leiomyoma of uterus 03/29/2019 Pelvic pain 03/29/2019 Overview: Added automatically from request for jack mccord [id number] Morbid obesity 03/15/2019 Complex atypical endometrial hyperplasia 03/15/2019 Encounters Date Type Specialty Care Team Description 05/31/2022 Office Visit Gynecology Bharat Palencia MD Malignant neoplasm of endometrium (Primary Dx); Complex atypica l endometrial hyperplasia; Screening mammo graphy; Abdominal herni a, not otherwise specified 05/31/2022 Travel 05/10/2022 Orders Only Gynecology Autumn Smith, PULLING MACHINE OPERATOR Complex a typical endometrial hyp erplasia (Primary Dx) 01/19/2022 Telephone Gynecology Mary Truong PA 10/30/2021 Telephone Surgical Oncology Hanna Magana RN after 10/25/2021 Surgical History Surgery Date Site/Laterality Comments CHOLECYSTECTOMY 10/03/2001 - 10/02/2002 DILATION AND CURETTAGE OF 02/27/2019 UTERUS EXCISION TUMOR/MASS (DEEP) 10/03/2015 - back, benign growth on 10/02/2016 back removed KNEE ARTHROSCOPY W/ ACL 10/03/2016 - Right RECONSTRUCTION 10/02/2017 DC TOTAL ABDOMINAL HYSTERECT 05/04/2019 Abdomen/N/A Pro cedure: COMPLETE W/WO RMVL TUBE OVARY ABDOMINAL H YSTERECTOMY; Surgeon: Bharat mckay MD; Location: [facility] [place]; Service: WELCOME CENTER ATTENDANT - GYNECOLOGIC ONCO LOGY DC SALPINGO-OOPHORECTOMY 05/04/2019 Abdomen/Left Procedu re: COMPL/PRTL UNI/BI SPX SALPINGO-O OPHORECTOMY, COMPLETE OR PART IAL, UNILATERAL OR BI LATERAL; Surgeon: Bharat mckay MD; Location[place] [facility] [place]; Service: WELCOME CENTER ATTENDANT - GYNECOLOGIC ONCO LOGY Medical History Medical History Date Comments Genital herpes simplex 2007 Abnormal uterine bleeding unrelated to menstrual cycle Anemia 2009 Anxiety Asthma Essential hypertension 05/31/2022 Family History Medical History Relation Name Comments Breast cancer Maternal Cousin 1 Breast cancer Maternal Cousin 2 Breast cancer Maternal Cousin 3 Breast cancer Maternal Cousin 4 Mesothelioma Maternal Grandfather Lung cancer Maternal Grandmother Stomach cancer Paternal Grandfather Drug abuse Paternal Uncle Relation Name Status Comments Maternal Cousin 1 Maternal Cousin 2 Alive Maternal Cousin 3 Alive Maternal Cousin 4 Alive Maternal Grandfather Maternal Grandmother Paternal Grandfather Paternal Uncle Social History Tobacco Use Types Packs/Day Years Used Date Smoking Tobacco: Former Cigarettes 1 0 08/0 10/1988 - 10/03/1997 Smokeless Tobacco: Never Comments: Started smoking at the age of 15, stopped smoking at 22 Alcohol Use Standard Drinks/Week Comments Yes 0 (1 standard drink = 0.6 oz pure I have 3-4 drinks liquor nightly. alcohol) Sex Assigned at Date Recorded Female 03/16/2019 12:27 PM CDT Obstetrics History Para Term AB IAB SAB Ectopic Multiple Living Live Births 0 0 0 0 0 0 0 0 0 0 0 Comments Menarche at age 11-12 G0 No hx of abnormal pap smears No mammogram Last Filed Vital Signs Vital Sign Reading Time Taken Comments Blood Pressure 165/86 05/31/2022 10:55 AM CDT Pulse 102 05/31/2022 10:55 AM CDT Temperature 36.6 C (97.9 F) 05/31/2022 10:55 AM CDT Respiratory Rate 18 05/31/2022 10:55 AM CDT Oxygen Saturation 96% 05/31/2022 10:55 AM CDT Inhaled Oxygen Concentration - - Weight 115.5 kg (254 lb 10.1 oz) 05/31/2022 10:52 AM CDT Height - - Body Mass Index 45.69 03/22/2019 1:00 PM CDT Plan of Treatment Date Type Specialty Care Team Description 11/29/2022 Follow-Up Gynecology Bharat Palencia M D [address] [place], [place] [address] (Wo rk) Health Maintenance Due Date Last Done Comments COVID-19 Vaccination (#1) 1975 Results Not on fileafter 10/25/2021 Insurance Payer Benefit Plan / Subscriber ID Effective Dates Phone Addre ss Type Group CIG[employer] MANAGED CIGNA HMO POS [id number] 2020-Present [id number] [place] [address] [phone] [address] [phone] [place], [place] [address] (Work) Silvana Hanna Personal/Famil Self 1975 [id number] [address] ([address]) [phone] [place], [place] [address] (Work) Silvana Hanna Personal/Famil Self 1975 [phone] [address] (Home) [phone] [place], [place] [address] (Work) Advance Directives Code Status Date Activated Date Inactivated Comments Full Code 05/04/2019 11:24 AM 05/06/2019 5:34 PM Care Teams Advertising Layout Worker Relationship Specialty Start Date End Date Oksana Manriquez PCP - External Obstetrics/Gynecology 03/07/19 MD Rommel Referring [address] [address] Bharat Palencia MD PCP - General Gynecological Oncology 03/07/[address] [place] [id number]
--- NOTE | 2022-10-25 16:01 | RAD REPORT ---
EXAM DESCRIPTION: RAD - Chest Single View - 10/25/2022 3:44 pm CLINICAL HISTORY: PALPITATIONS, near syncope on multiple episodes COMPARISON: Two view chest 05/25/2018 TECHNIQUE: AP portable chest image was obtained 10/25/2022 3:44 pm . FINDINGS: Lungs are clear. Large body habitus, shallow inspiration and under penetrated film techniq ue accentuate chest findings. No hilar mass or lymphadenopathy seen. Heart and vasculature are normal . No measurable pleural effusion and no pneumothorax. No acute bony abnormality seen. No acute aortic findings suspected. IMPRESSION: No acute cardiopulmonary process.
[2022-10-25 16:21] LABS: Absolute Lymphocytes (CBC) 0.9 K/uL (0.7-4.9); Hematocrit 41.2 % (36.0-45.0); Lymphocytes % 20.8 % (15.3-44.8); MCV 88.6 fL (80-100); RBC Red Blood Cell Count 4.65 M/uL (3.86-4.86)
[2022-10-25 16:30] LABS: Protime INR 1.15
[2022-10-25] MEDS ORDERED: NA CHLORIDE 0.9% 1,000 ML ONE (16:34)
[2022-10-25 16:38] LABS: Magnesium 1.7 mg/dL (1.6-2.4); Potassium 3.4 mmol/L (3.5-5.1); Troponin High Sensitivity 24.6 pg/mL (<58.9)
--- NOTE | 2022-10-25 18:44 | ER ---
Nurse's Notes [facility] Name: Silvana Hanna Age: 47 yrs Sex: Female : 1975 Arrival Date: 10/25/2022 Time: 14:58 Bed 18 Private MD: Diagnosis: Palpitations;Dizziness and giddiness Presentation: 10/25 15:22 Chief complaint: Patient states: near syncopal episode. Pt reports in the past few ss weeks this has occurred a couple of times. Coronavirus screen: Client denies travel out of the [place] in the last 14 days. Ebola Screen: Patient denies exposure to infectious person. Patient denies travel to an Ebola-affected area in the 21 days before illness onset. Initial Sepsis Screen: Does the patient meet any 2 criteria? No. Patient's initial sepsis screen is negative. Does the patient have a suspected source of infection? No. Patient's initial sepsis screen is negative. Risk Assessment: Do you want to hurt yourself or someone else? Patient reports no desire to harm self or others. Onset of symptoms was October 25, 2022. 15:22 Method Of Arrival: Ambulatory ss 15:22 Acuity: JOSÉ MIGUEL 3 ss Triage Assessment: 16:25 General: Appears in no apparent distress. obese, well groomed, well developed, Behavior 5 is calm, cooperative, appropriate for age. Pain: Denies pain. 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 - Social history:: Smoking status: Patient denies any tobacco usage or history of. Screenin:24 [facility] ED Fall Risk Assessment (Adult) History of falling in the last 3 months, [facility] including since admission No falls in past 3 months (0 pts) Confusion or Disorientation No (0 pts) Intoxicated or Sedated No (0 pts) Impaired Gait No (0 pts) Mobility Assist Device Used No (0 pt) Altered Elimination No (0 pt) Score/Fall Risk Level 0 - 2 = Low Risk. Abuse screen: Denies threats or abuse. Denies injuries from another. Nutritional screening: No deficits noted. Tuberculosis screening: No symptoms or risk factors identified. Vital Signs: 15:22 BP 158 / 81; Pulse 99; Resp 16; Pulse Ox 99% on R/A; Weight 114.76 kg; Height 5 ft. 3 ss in. (160.02 cm); Pain 0/10; 16:11 BP 154 / 90; Pulse 89; Resp 18; Pulse Ox 96% ; jh5 16:23 BP 141 / 75 Supine; Pulse 88; Resp 17; Pulse Ox 98% ; jh5 16:23 BP 158 / 84 Sitting; Pulse 91; Resp 17; Pulse Ox 98% ; jh5 16:23 BP 153 / 90 Standing; Pulse 103; Resp 19; Pulse Ox 98% ; jh5 17:17 BP 119 / 69; Pulse 88; Resp 18; Pulse Ox 99% ; jh5 15:22 Body Mass Index 44.82 (114.76 kg, 160.02 cm) ss ED Course: 14:58 Patient arrived in ED. mr 15:08 Jeanmarie Munoz PA is PHCP. cp 15:08 Dutch Lara DO is Attending Physician. cp 15:23 Triage completed. ss 15:23 Arm band placed on right wrist. ss 15:46 XRAY Chest (1 view) In Process Unspecified. EDMS 16:16 Inserted saline lock: 20 gauge in left antecubital area, using aseptic technique. Blood rs5 collected. 16:16 Basic Metabolic Panel Sent. rs5 16:16 CBC with Diff Sent. rs5 16:16 D-Dimer Sent. rs5 16:16 Magnesium Sent. rs5 16:16 PT-INR Sent. rs5 16:16 Troponin HS Sent. rs5 16:24 Patient has correct armband on for positive identification. jh5 16:24 No provider procedures requiring assistance completed. jh5 18:43 Austin Gregorio MD is Referral Physician. cp 18:47 US Extremity Venous W Compression Uvaldo In Process Unspecified. EDMS 18:56 IV discontinued, intact, bleeding controlled, No redness/swelling at site. Pressure jh5 dressing applied. Administered Medications: 16:34 Drug: NS 0.9% 1000 ml Route: IV; Rate: 500 ml/hr; Site: left antecubital; jh5 18:45 Drug: Potassium Effervescent Tablet 25 mEq Route: PO; jh5 Medication: 16:25 VIS not applicable for this client. jh5 Outcome: 18:44 Discharge ordered by . denice 18:55 Discharged to home ambulatory. [facility] 18:55 Condition: good 18:55 Discharge instructions given to patient, Instructed on discharge instructions, follow up and referral plans. medication usage, safety practices. 18:56 Patient left the ED. [facility] Signatures: Dispatcher [employer] ELOY Karissa Simon Vicky Cordoba, RN RN Jeanmarie Antonio PA PA cp Rees, Jessica RN RN [facility] Faustino Payton 5
--- NOTE | 2022-10-25 18:44 | EDPHYS ---
Physician Documentation [facility] Name: Silvana Hanna Age: 47 yrs Sex: Female : 1975 Arrival Date: 10/25/2022 Time: 14:58 Bed 18 Private MD: ED Physician Dutch Lara HPI: 10/25 15:15 This 47 yrs old Female presents to ER via Ambulatory with complaints of AFIB, cp Dizziness. 15:15 The patient presents with a history of heart racing. cp 15:15 Context: The symptoms occur without known cause. Onset: The symptoms/episode cp began/occurred for past several weeks. Duration: The patient or guardian reports multiple episodes, that are intermittent. Modifying factors: The symptoms are aggravated by nothing. Associated signs and symptoms: Pertinent positives: SOB, near-syncope, dizziness. Severity of symptoms: in the emergency department the symptoms have improved mildly. Patient reports having hernia repair surgery performed by DR Berger last month. 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 - Social history:: Smoking status: Patient denies any tobacco usage or history of. ROS: 15:20 Constitutional: Negative for body aches, chills, fever, poor PO intake. cp 15:20 Eyes: Negative for injury, pain, redness, and discharge. cp 15:20 ENT: Negative for drainage from ear(s), ear pain, sore throat, difficulty swallowing, difficulty handling secretions. 15:20 Cardiovascular: Positive for palpitations, Negative for chest pain, edema. 15:20 Respiratory: Positive for shortness of breath, on exertion. Negative for cough, wheezing. 15:20 Abdomen/GI: Negative for abdominal pain, vomiting, diarrhea, constipation. 15:20 Back: Negative for pain at rest, pain with movement. 15:20 Skin: Negative for cellulitis, rash. 15:20 Neuro: Positive for dizziness, near syncope, Negative for altered mental status, numbness, weakness. 15:20 All other systems are negative. Exam: 15:25 Constitutional: The patient appears in no acute distress, alert, awake, cp non-diaphoretic, non-toxic, well developed, well nourished, obese. 15:25 Head/Face: Normocephalic, atraumatic. cp 15:25 Eyes: Periorbital structures: appear normal, Pupils: equal, round, and reactive to light and accomodation, Extraocular movements: intact throughout, Conjunctiva: normal, no exudate, no injection, Sclera: no appreciated abnormality, Lids and lashes: appear normal, bilaterally. 15:25 ENT: External ear(s): are unremarkable, Ear canal(s): are normal, TM's: dullness, bilaterally, Nose: is normal, Mouth: Lips: moist, Oral mucosa: pink and intact, moist, Posterior pharynx: is normal, airway is patent, no erythema, no exudate. 15:25 Neck: ROM/movement: is normal, is supple, without pain, no range of motions limitations. 15:25 Chest/axilla: Inspection: normal. 15:25 Cardiovascular: Rate: normal, Rhythm: regular, Edema: is not appreciated, JVD: is not appreciated. 15:25 Respiratory: the patient does not display signs of respiratory distress, Respirations: normal, no use of accessory muscles, no retractions, labored breathing, is not present, Breath sounds: are clear throughout, no decreased breath sounds, no stridor, no wheezing. 15:25 Abdomen/GI: Inspection: obese Bowel sounds: active, all quadrants, Palpation: soft, in all quadrants, mild abdominal tenderness, in the left lower quadrant, rebound tenderness, is not appreciated, involuntary guarding, is not appreciated. 15:25 Back: pain, is absent, ROM is normal. 15:25 Skin: cellulitis, is not appreciated, no rash present. 15:25 Neuro: Orientation: to person, place \T\ time. Mentation: is normal, Cerebellar function: is grossly normal, Motor: moves all fours, strength is normal, Sensation: is normal. 15:33 ECG was reviewed by the Attending Physician. cp Vital Signs: 15:22 BP 158 / 81; Pulse 99; Resp 16; Pulse Ox 99% on R/A; Weight 114.76 kg; Height 5 ft. 3 ss in. (160.02 cm); Pain 0/10; 16:11 BP 154 / 90; Pulse 89; Resp 18; Pulse Ox 96% ; [facility] 16:23 BP 141 / 75 Supine; Pulse 88; Resp 17; Pulse Ox 98% ; 5 16:23 BP 158 / 84 Sitting; Pulse 91; Resp 17; Pulse Ox 98% ; 5 16:23 BP 153 / 90 Standing; Pulse 103; Resp 19; Pulse Ox 98% ; [facility] 17:17 BP 119 / 69; Pulse 88; Resp 18; Pulse Ox 99% ; [facility] 15:22 Body Mass Index 44.82 (114.76 kg, 160.02 cm) ss MDM: 15:09 Patient medically screened. cp 17:40 ED course: Patient refuses CT chest with contrast to r/o PE at this time due to concern cp for possible allergy to contrast. Patient has not had allergic reaction to contrast in the past and refuses to be premedicated with steroids and benadryl. 18:40 ED course: US tech reports DVT study negative. cp 18:44 Data reviewed: vital signs, nurses notes, lab test result(s), EKG, radiologic studies, cp plain films, ultrasound. 18:44 Consideration of Admission/Observation Escalation of care including cp admission/observation considered. Test considered but Not performed: Other Details CT Chest for PE. Care significantly affected by the following chronic conditions: Hypertension, Obesity. Counseling: I had a detailed discussion with the patient and/or guardian regarding: the historical points, exam findings, and any diagnostic results supporting the discharge/admit diagnosis, lab results, radiology results, the need for outpatient follow up, a family practitioner, to return to the emergency department if symptoms worsen or persist or if there are any questions or concerns that arise at home. 10/25 15:14 Order name: Basic Metabolic Panel; Complete Time: 16:43 cp 10/25 16:43 Interpretation: Normal except: K 3.4; GLUC 129. cp 10/25 15:14 Order name: CBC with Diff; Complete Time: 16:26 cp 10/25 16:26 Interpretation: Normal except: WBC 4.20; PLT 105. cp 10/25 15:14 Order name: D-Dimer; Complete Time: 17:16 cp 10/25 17:16 Interpretation: Abnormal: D-DIMER 715. cp 10/25 15:14 Order name: Magnesium; Complete Time: 16:43 cp 10/25 15:14 Order name: PT-INR; Complete Time: 17:16 cp 10/25 16:32 Interpretation: Reviewed. cp 10/25 15:14 Order name: Troponin HS; Complete Time: 16:43 cp 10/25 15:14 Order name: XRAY Chest (1 view); Complete Time: 16:26 cp 10/25 15:14 Order name: EKG; Complete Time: 15:15 cp 10/25 15:14 Order name: Cardiac monitoring; Complete Time: 15:20 cp 10/25 15:14 Order name: EKG - Nurse/Tech; Complete Time: 15:31 cp 10/25 17:17 Order name: US Extremity Venous W Compression Uvaldo cp 10/25 15:14 Order name: IV Saline Lock; Complete Time: 16:16 cp 10/25 15:14 Order name: Labs collected and sent; Complete Time: 16:16 cp 10/25 15:14 Order name: O2 Per Protocol; Complete Time: 15:20 cp 10/25 15:14 Order name: O2 Sat Monitoring; Complete Time: 15:20 cp 10/25 15:14 Order name: Orthostatics; Complete Time: 16:26 cp EC:33 Rate is 95 beats/min. Rhythm is regular. LA interval is normal. QRS interval is normal. cp QT interval is normal. T waves are Inverted in lead aVR. Interpreted by me. Reviewed by me. Administered Medications: 16:34 Drug: NS 0.9% 1000 ml Route: IV; Rate: 500 ml/hr; Site: left antecubital; [facility] 18:45 Drug: Potassium Effervescent Tablet 25 mEq Route: PO; 5 Disposition: 19:23 Co-signature as Attending Physician, Dutch AMADOR was immediately available on-site ms3 in the Emergency Department for consultation in the care of the patient. Disposition Summary: 10/25/22 18:44 Discharge Ordered Location: Home cp Problem: new cp Symptoms: have improved cp Condition: Stable cp Diagnosis - Palpitations cp - Dizziness and giddiness cp Followup: cp - With: Austin Gregorio MD - When: 2 - 3 days - Reason: Recheck today's complaints Discharge Instructions: - Discharge Summary Sheet cp - Dizziness cp - Palpitations cp - Aspirin and Your Heart cp - Ambulatory Cardiac Monitoring cp Forms: - Medication Reconciliation Form cp - Thank You Letter cp - Antibiotic Education cp - Prescription Opioid Use cp Prescriptions: - Meclizine 25 mg Oral Tablet - take 1 tablet by ORAL route every 8 hours As needed; 30 tablet; Refills: 0, cp Product Selection Permitted - Zofran 4 mg Oral Tablet - take 1 tablet by ORAL route every 12 hours As needed; 20 tablet; Refills: 0, cp Product Selection Permitted Signatures: Dispatcher [employer] EDOR Vicky Duong RN RN ss Jeanmarie Munoz PA PA cp Dutch Laar DO DO ms3 Hanna Winter RN RN jh5 Corrections: (The following items were deleted from the chart) 17:34 17:34 Urine Test ordered. denice 5 17:49 17:18 Chest For PE Angio+CT.RAD.BRZ ordered. [facility] EDOR 10/26 15:36 10/25 15:00 This 47 yrs old Female presents to ER via Ambulatory with cp complaints of AFIB, Dizziness. cp
--- NOTE | 2022-10-25 18:56 | RAD REPORT ---
EXAM DESCRIPTION: US - Extrem Venous W Compress Uvaldo - 10/25/2022 6:45 pm CLINICAL HISTORY: r/o DVT COMPARISON: None. TECHNIQUE: Real-time sonographic evaluation of the bilateral lower extremity common femoral, superfi cial femoral, popliteal and posterior tibial veins was performed. FINDINGS: Normal compressibility, flow augmentation, phasic flow and spontaneous flow are identified in the left and right lower extremity common femoral, superficial femoral, popliteal and posterior t ibial veins. No intraluminal filling defects seen. IMPRESSION: No DVT in either lower extremity.
[2022-10-25 20:56] VITALS: BP 119/69; O2SAT 99
--- NOTE | 2022-10-26 12:27 | EKG ---
Test Date: 2022-10-25 Test Time: 15:27:16 Court Administrator: HENOK MEASUREMENT RESULTS: Intervals: Rate: 95 OH: 154 QRSD: 88 QT: 376 QTc: 472 Bartlett: P: 47 OH: 154 QRS: 12 T: 28 INTERPRETIVE STATEMENTS: Normal sinus rhythm Cannot rule out Anterior infarct, age undetermined Abnormal ECG Compared to ECG 05/25/2018 14:14:51 Sinus tachycardia no longer present Myocardial infarct finding still present Electronically Signed On 10-26-22 12:25:04 MATERIALS DIRECTOR by Issac Mercado
== END 2022-10-25 18:56 | disposition home or self-care (01) ==
LOC: ER 14:53
DX: R00.2 Palpitations (principal); R42 Dizziness and giddiness; I10 Essential (primary) hypertension; F41.9 Anxiety disorder, unspecified; Z91.040 Latex allergy status; Z91.048 Other nonmedicinal substance allergy status
CPT/HCPCS: 93005; 85025; 80048; 36415; 83735; 85610; 85379; 84484; 71045; 93970; 99284; J7030

== ENCOUNTER 2024-09-25 11:07 | Emergency (ER) | payer OTHER ==
--- OUTSIDE RECORDS SUMMARY | 2024-09-25 11:09 | XMS REPORT | Clinical Summary ---
Author Name Unknown Organization [facility] Address [address] [place] [address] Care Team Providers Care Natural Gas Inspector Name Role Phone Oksana Manriquez MD Unavailable [phone] Jenifer Meza Unavailable [phone] Basilio Caldwell MD Primary Care Provider [phone] Issac Mercado MD Unavailable [phone] Allergies No known active allergies Medications * This document contains information received from the source organization and may not represent a complete record from that organization. cetirizine (ZyrTEC) 10 mg tabletIndication s:Complex atypical endometrial hyperplasia Take 1 tablet (10 mg) by mouth at bedtime. 0 05/06/2019 Active metoprolol succinate (TOPROL XL) 25 mg 24 hr tablet Take 1 tablet (25 mg) by mouth as needed. Active loratadine (CLARITIN ORAL) Take by mouth as needed. 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 Discussed elev enzymes, normal bilirubin. Pt sent to the lab for PT/PTT. Also discussed pt's c/o occ CP episodes over the last 4 yrs for which she has gone to the twice to the ER before and told it was non-cardiac. Pt reports seeing her production generalist Dr Gregorio in [place] 01/2019 as she needed clearance for D&C. She occasionally has palpitations on exertion and CP. These episodes happen during her menstruation cycle. She does have menorrhagia and is anemic. She states her production generalist thought symptoms were r/t anemia. Pt states she was cleared to proceed with D&C. Pt states she was told that if the symptoms did not improved after the hysterectomy, then she would need further work-up. Pt reports a stress test was recommended for after her D&C along with a sleep study, but she never returned. States she also had an Echo 01/2019 with no significant findings. Outside report requested. Since then, she reports her CP has definitely improved and does not occur as often. She last had an episode 2 days ago while on her menstrual cycle again after walking through an apt complex climbing stairs to show properties. It lasted only a [...] recommend pt return for f/u to her production generalist after surgery. Based on our discussion, we feel that the patient is optimized for the planned procedure as scheduled. Please contact the Consultative Medicine Inpatient Tree Fruit And Nut Crops Farmer Physician for any issues concerning post operative medical management. Please f/u on PT/PTT results. 03/22/2019: MRI PELVIS: IMPRESSION: 1. Large bulky uterus. Large subserosal uterine fundal mass likely represents uterine fibroid. 2. Large 13 cm left adnexal lesion with multiple septations. Differentials include cystadenoma but borderline low-grade ovarian neoplasm cannot be excluded Elevated liver enzymes level 05/03/2019 Overview (05/03/2019): AST 114, ALT 107 from 05/03/19 Labs from 03/26/19 also indicated similar elevation Abdominal or pelvic swelling , mass, or lump, left lower quadrant 03/29/2019 Subserous leiomyoma of uterus 03/29/2019 Pelvic pain 03/29/2019 Overview (03/29/2019): Added automatically from request for surgery [id number] Morbid obesity 03/15/2019 Complex atypical endometrial hyperplasia 019 Surgical History Surgery Date Site/Laterality Comments CHOLECYSTECTOMY 10/03/2001 - 10/02/2002 DILATION AND CURETTAGE OF UTERUS 02/27/2019 EXCISION TUMOR/MASS (DEEP) 10/03/2015 - 10/02/2016 back, benign growth on back removed KNEE ARTHROSCOPY W/ ACL RECONSTRUCTION 10/03/2016 - 10/02/2017 Right TX TOTAL ABDOMINAL HYSTERECT W/WO RMVL TUBE OVARY 05/04/2019 Abdomen/N/A Procedure: COMPLETE ABDOMINAL HYSTERECTOMY; Surgeon: Bharat Palencia MD; Location: MAIN OR; Service: OUTDOOR ADVENTURE LEADER - GYNECOLOGIC ONCOLOGY TX SALPINGO-OOPHORECTOMY COMPL/PRTL UNI/BI SPX 05/04/2019 Abdomen/Left Procedure: SALPINGO-OOPHORECTOMY, COMPLETE OR PARTIAL, UNILATERAL OR BILATERAL; Surgeon: Bharat Palencia MD; Location: MAIN OR; Service: OUTDOOR ADVENTURE LEADER - GYNECOLOGIC ONCOLOGY Medical History Medical History Date Comments Genital herpes simplex 2007 Abnormal uterine bleeding unrelated to menstrual cycle Anemia 2009 Anxiety Asthma Essential hypertension 05/31/2022 Atrial fibrillation Family History Medical History Relation Name Comments [...] Used Date Smoking Tobacco: Former Cigarettes 1 8.4 0 05/03/1989 - 10/03/1997 Smokeless Tobacco: Never Comments:Started smoking at the age of 15, stopped smoking at 22 Alcohol Use Standard Drinks/Week Comments Yes 0 (1 standard drink = 0.6 oz pure alcohol) I have 3-4 drinks liquor nightly. Comments No Sex and Gender Information Value Date Recorded Sex Assigned at Female 03/16/2019 12:27 PM CDT Legal Sex Female 4:41 PM CDT Gender Identity Female 03/16/2019 12:27 PM CDT Sexual Orientation Straight 03/16/2019 12 :27 PM CDT Obstetrics History Para Term AB IAB SAB Ectopic Multiple Livin g Live Births 0 0 0 0 0 0 0 0 0 0 0 Comments Menarche at age 11-12 G0 No hx of abnormal pap smears No mammogram Plan of Treatment Health Maintenance Due Date Last Done Comments COVID-19 Vaccine ( - 2023-2 5 season) 2024 Influenza Vaccine (#1) 2024 Pneumococcal Vaccine: Pediat rics (0 to 5 Years) and At-Risk Patients (6 to 64 Years) Aged Out No longer eligi ble based on patient's age to complete this topic Insurance [facility] POS OPEN ACCESS Advance Directives * Full Code (Latest Code Status on File) Date Activated Date Inactivated Comments 05/04/2019 11:24 AM 05/06/2019 5:34 PM Care Teams Natural Gas Inspector Relationship Specialty Start Date End Date Oksana Manriquez MD [address] [place] [id number] [email or web address] PCP - External Referring Obstetrics/Gynecology 03/07/19 Basilio Caldwell MD [address] [place] [id number] [email or web address] PCP - General Gynecological Oncology 07/18/23 Jenifer Meza PA [facility] [place], [place] [id number] [email or web address] Physician Entomology Teacher Gastroenterology, Hepatology and Nutrition 06/08/23 Issac Mercado MD [address] [place] [address] [place] [id number] Cardiology 07/18/23
--- NOTE | 2024-09-25 12:19 | ER ---
Nurse's Notes [facility] Name: Silvana Hanna Age: 49 yrs Sex: Female : 1975 Arrival Date: 09/25/2024 Time: 11:07 Bed 23 Private MD: Diagnosis: Varicose veins of left lower extremities with other complications-bleeding Presentation: 09/25 11:16 Chief complaint: EMS states: Toned out for bleeding to left leg post varicose vein jl7 puncture. Coronavirus screen: At this time, the client does not indicate any symptoms associated with coronavirus-19. Ebola Screen: No symptoms or risks identified at this time. Complicating Factors: There are no complicating factors for this patient. Initial Sepsis Screen: Does the patient meet any 2 criteria? No. Patient's initial sepsis screen is negative. Does the patient have a suspected source of infection? No. Patient's initial sepsis screen is negative. Risk Assessment: Do you want to hurt yourself or someone else? Patient reports no desire to harm self or others. Onset of symptoms was September 25, 2024. 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 - Infectious Disease History:: Denies. - Family history:: not pertinent. - Social history:: Smoking status: Patient reports the use of cigarette tobacco products, denies chronic smoking, but will smoke occasionally. Screenin:50 [facility] ED Fall Risk Assessment (Adult) History of falling in the last 3 months, me1 including since admission No falls in past 3 months (0 pts) Confusion or Disorientation No (0 pts) Intoxicated or Sedated No (0 pts) Impaired Gait No (0 pts) Mobility Assist Device Used No (0 pt) Altered Elimination No (0 pt) Score/Fall Risk Level 0 - 2 = Low Risk Maintained a safe environment, Provided non-skid footwear, Hourly rounding (assess needs \T\ fall precautionary measures) done. Abuse screen: Denies threats or abuse. Nutritional screening: No deficits noted. Tuberculosis screening: No symptoms or risk factors identified. Assessment: 11:50 General: Appears comfortable, well groomed, well developed, well nourished, Behavior is me1 calm, cooperative, appropriate for age, Reports Toned out for bleeding to left leg post varicose vein puncture. Pain: Denies pain. Neuro: Level of Consciousness is awake, alert, obeys commands, Oriented to person, place, time, situation, Appropriate for age. Cardiovascular: Patient's skin is warm and dry. Respiratory: Airway is patent Respiratory effort is even, unlabored, Respiratory pattern is regular, symmetrical. GI: No signs and/or symptoms were reported involving the gastrointestinal system. : No signs and/or symptoms were reported regarding the genitourinary system. EENT: No signs and/or symptoms were reported regarding the EENT system. Derm: Wound noted left lopez Wound is punctured vericose vein. Musculoskeletal: Circulation, motion, and sensation intact. Range of motion: intact in all extremities. Injury Description: Puncture sustained to left lopez is to vericose vein that patient scratched. 12:53 Injury Description: Laceration is clean. me1 Vital Signs: 11:16 BP 143 / 67; Pulse 101; Resp 17; Temp 97; Pulse Ox 94% ; Weight 115.21 kg; Height 5 ft. jl7 3 in. ; Pain 0/10; 12:00 BP 143 / 67; Pulse 93; Resp 16; Pulse Ox 100% on 2 lpm NC; me1 12:42 BP 123 / 72; Pulse 91; Resp 18; Temp 98.4; Pulse Ox 100% on R/A; me1 11:16 Body Mass Index 44.99 (115.21 kg, 160.02 cm) jl7 11:16 Pain Scale: Adult jl7 ED Course: 11:15 Patient arrived in ED. jl7 11:16 Jeanmarie Sanchez MD is Attending Physician. [facility] 11:35 Triage completed. 7 11:50 Patient has correct armband on for positive identification. Bed in low position. Call nm1 light in reach. Side rails up X2. Provided Education on: POC. Verbalized understanding. Client placed on continuous cardiac and pulse oximetry monitoring. NIBP monitoring applied. Pulse ox on. NIBP on. 11:50 No provider procedures requiring assistance completed. me1 11:55 Silvana Patrick, RN is Primary Nurse. me1 12:18 Louis Ford MD is Referral Physician. [facility] 12:53 Arm band placed on Patient placed in an exam room. me1 12:54 Patient did not have IV access during this emergency room visit. me1 Administered Medications: No medications were administered Medication: 11:50 VIS not applicable for this client. me1 Outcome: 12:18 Discharge ordered by . [facility] 12:53 Discharged to home via wheelchair, with friend, me1 12:53 Condition: stable 12:53 Discharge instructions given to patient, Instructed on discharge instructions, follow up and referral plans. medication usage, Demonstrated understanding of instructions, follow-up care, medications, Prescriptions given X 1, 12:54 Patient left the ED. me1 Signatures: Jeanmarie Sanchez MD MD cha Leal, Jahala, RN RN jl7 Silvana Patrick, RN RN me1 Corrections: (The following items were deleted from the chart) 11:56 11:16 Chief complaint: EMS states: Toned out for bleeding to left leg post varicose me1 vein puncture jl7
--- NOTE | 2024-09-25 12:19 | EDPHYS ---
Physician Documentation [facility] Name: Silvana Hanna Age: 49 yrs Sex: Female : 1975 Arrival Date: 09/25/2024 Time: 11:07 Bed 23 Private MD: ED Physician Jeanmarie Sanchez HPI: 09/25 12:11 This 49 yrs old Female presents to ER via EMS with complaints of Vericose vein jean carlos puncture-left leg. 12:11 The patient presents with pain, that is acute, bleeding at varicose. The complaints jean carlos affect the left medial ankle. Context: The problem was sustained at an unknown site. Onset: The symptoms/episode began/occurred just prior to arrival. Modifying factors: The symptoms are alleviated by elevating leg, remaining still, the symptoms are aggravated by nothing. Associated signs and symptoms: The patient has no apparent associated signs or symptoms. The patient presents with bleeding at vaicose. The complaints affect the left ankle. 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 - Infectious Disease History:: Denies. - Family history:: not pertinent. - Social history:: Smoking status: Patient reports the use of cigarette tobacco products, denies chronic smoking, but will smoke occasionally. ROS: 12:11 Constitutional: Negative for fever, chills, and weight loss, Eyes: Negative for injury, jean carlos pain, redness, and discharge, ENT: Negative for injury, pain, and discharge, Neck: Negative for injury, pain, and swelling, Cardiovascular: Negative for chest pain, palpitations, and edema, Respiratory: Negative for shortness of breath, cough, wheezing, and pleuritic chest pain, Abdomen/GI: Negative for abdominal pain, nausea, vomiting, diarrhea, and constipation, Back: Negative for injury and pain, : Negative for injury, bleeding, discharge, and swelling, MS/Extremity: Negative for injury and deformity, Neuro: Negative for headache, weakness, numbness, tingling, and seizure, Psych: Negative for depression, anxiety, suicide ideation, homicidal ideation, and hallucinations, Allergy/Immunology: Negative for hives, rash, and allergies, Endocrine: Negative for neck swelling, polydipsia, polyuria, polyphagia, and marked weight changes, Hematologic/Lymphatic: Negative for swollen nodes, abnormal bleeding, and unusual bruising, 12:11 Skin: Positive for varicose, bleeding one spot, Exam: 12:17 Constitutional: This is a well developed, well nourished patient who is awake, alert, jean carlos and in no acute distress. Head/Face: Normocephalic, atraumatic. Eyes: Pupils equal round and reactive to light, extra-ocular motions intact. Lids and lashes normal. Conjunctiva and sclera are non-icteric and not injected. Cornea within normal limits. Periorbital areas with no swelling, redness, or edema. ENT: Nares patent. No nasal discharge, no septal abnormalities noted. Tympanic membranes are normal and external auditory canals are clear. Oropharynx with no redness, swelling, or masses, exudates, or evidence of obstruction, uvula midline. Mucous membranes moist. Neck: Trachea midline, no thyromegaly or masses palpated, and no cervical lymphadenopathy. Supple, full range of motion without nuchal rigidity, or vertebral point tenderness. No Meningismus. Chest/axilla: Normal chest wall appearance and motion. Nontender with no deformity. No lesions are appreciated. Cardiovascular: Regular rate and rhythm with a normal S1 and S2. No gallops, murmurs, or rubs. Normal PMI, no JVD. No pulse deficits. Respiratory: Lungs have equal breath sounds bilaterally, clear to auscultation and percussion. No rales, rhonchi or wheezes noted. No increased work of breathing, no retractions or nasal flaring. Abdomen/GI: Soft, non-tender, with normal bowel sounds. No distension or tympany. No guarding or rebound. No evidence of tenderness throughout. Back: No spinal tenderness. No costovertebral tenderness. Full range of motion. Skin: Warm, dry with normal turgor. Normal color with no rashes, no lesions, and no evidence of cellulitis. Neuro: Awake and alert, GCS 15, oriented to person, place, time, and situation. Cranial nerves II-XII grossly intact. Motor strength 5/5 in all extremities. Sensory grossly intact. Cerebellar exam normal. Normal gait. Psych: Awake, alert, with orientation to person, place and time. Behavior, mood, and affect are within normal limits. 12:17 Musculoskeletal/extremity: ROM: no acute changes, Circulation is intact in all extremities. Sensation intact. Compartment Syndrome exam of affected extremity: is normal. no pain, no numbness, no tingling, no sensation deficit, no palor, no weak pulses, Weight bearing: able to fully bear weight, Vital Signs: 11:16 BP 143 / 67; Pulse 101; Resp 17; Temp 97; Pulse Ox 94% ; Weight 115.21 kg; Height 5 ft. jl7 3 in. ; Pain 0/10; 12:00 BP 143 / 67; Pulse 93; Resp 16; Pulse Ox 100% on 2 lpm NC; me1 12:42 BP 123 / 72; Pulse 91; Resp 18; Temp 98.4; Pulse Ox 100% on R/A; me1 11:16 Body Mass Index 44.99 (115.21 kg, 160.02 cm) jl7 11:16 Pain Scale: Adult jl7 Procedures: 12:11 Performed prepped and figure [address] place with 6.0 x1. jean acrlos MDM: 11:16 Medical Screening Exam initiated jean carlos 12:11 Data reviewed: vital signs, nurses notes. Consideration of Admission/Observation jean carlos Escalation of care including admission/observation considered. I considered the following discharge prescriptions or medication management in the emergency department Medications were administered in the Emergency Department. See MAR. Test considered but Not performed: Labs: no labs. Historians other than the Patient: pt well informed. Care significantly affected by the following chronic conditions: Diabetes, Hypertension, Obesity. 09/25 12:11 Order name: Wound dressing; Complete Time: 12:43 jean carlos 09/25 12:11 Order name: Dressing - Wound; Complete Time: 12:43 jean carlos 09/25 12:11 Order name: Gloves, Sterile; Complete Time: 12:43 jean carlos 09/25 12:11 Order name: Prolene, Sutures; Complete Time: 12:43 jean carlos 09/25 12:11 Order name: Setup Suture Tray; Complete Time: 12:43 jean carlos Administered Medications: No medications were administered Disposition Summary: 09/25/24 12:18 Discharge Ordered Notes: Location: Home jean carlos Problem: new jean carlos Symptoms: have improved jean carlos Condition: Stable jean carlos Diagnosis - Varicose veins of left lower extremities with other complications - bleeding jean carlos Followup: jean carlos - With: Private Physician - When: 2 - 3 days - Reason: Recheck today's complaints, Continuance of care, Re-evaluation by your physician Followup: jean carlos - With: Louis Ford MD - When: 2 - 3 days - Reason: Recheck today's complaints, Re-evaluation by your physician Discharge Instructions: - Discharge Summary Sheet jean carlos - Varicose Veins jean carlos - Nonsurgical Procedures for Varicose Veins jean carlos - Nonsurgical Procedures for Varicose Veins, Care After [facility] Forms: - Medication Reconciliation Form jean carlos - Antibiotic Education jean carlos - Prescription Opioid Use jean carlos - Patient Portal Instructions [facility] - Leadership Thank You Letter [facility] Prescriptions: - Cephalexin 500 mg Oral capsule - take 1 capsule ORAL route every 6 hours for 10 days; 28 capsule; Refills: 0, jean carlos Product Selection Permitted Signatures: Jeanmarie Sanchez MD MD cha Leal, Jahala, RN RN jl7 Silvana Patrick, RN RN me1
[2024-09-25 13:06] VITALS: O2SAT 100
[2024-09-25 13:11] VITALS: BP 123/72; TEMP 98.4
== END 2024-09-25 12:54 | disposition home or self-care (01) ==
LOC: ER 11:07 → SUPCPDRO 11:07 → ER 12:54
DX: I83.892 Varicose veins of left lower extremity with other complications (principal); E11.9 Type 2 diabetes mellitus without complications; I10 Essential (primary) hypertension; F17.210 Nicotine dependence, cigarettes, uncomplicated; Z91.040 Latex allergy status
CPT/HCPCS: 99284